=== PATIENT | male | born 2000 | race Two or more races ===

== ENCOUNTER 2025-08-09 22:27 | Emergency (ER) | payer MEDICAID, OTHER ==
[~2025-08-09] VITALS: Ht 175.3 cm; Wt 97.6 kg
[2025-08-10 00:23] VITALS: BP 150/92; PULSE 84; RESP 18; TEMP 97.6; O2SAT 98
[2025-08-10] MEDS ORDERED: CLOB0.055 TOP (00:30)
--- NOTE | 2025-08-10 00:33 | ED.PDOC ---
History of Present Illness(SKN HPI Comments 25-year-old male presents to the ED chief complaint itchy rash to bilateral hands x5 days. Patient reports history of this rash he notes had it about a year ago nose was prescribed a strong steroid cream which helped. Denies fever, chills, weakness or numbness. Denies any other concerns at this time. Chief Complaint: Rash Time Seen by MD: 22:39 History of Present Illness: Nurses Notes, Medications, Allergies Allergies: Coded Allergies: NO KNOWN ALLERGIES (Unverified , 08/09/25) Information Source: Patient Mode of Arrival: Ambulatory Past Medical History PAST MEDICAL HISTORY: Denies Surgical History: Denies all surgeries Family History Family History: Unknown Social History Smoker: Non-Smoker Alcohol: Denies ETOH Use Drugs: Denies Drug Use All Other Systems: Reviewed and Negative (see hpi) Physical Exam General Appearance: No Apparent Distress, Normal HEENT: Pharynx Normal Neck: Full Range of Motion, Non-Tender Respiratory: Lungs Clear, No Respiratory Distress, Normal Breath Sounds Cardiovascular: No Murmur, Normal Peripheral Pulses, Regular Rate/Rhythm Breast Exam: Deferred Gastrointestinal: Non Tender, Soft Genitalia: Deferred Pelvic: Deferred Rectal: Deferred Extremities: Normal capillary refill, Normal range of motion Musculoskeletal : Apperance: Normal Neurologic: Alert, No Motor Deficits, Normal Affect, Normal Mood, No Sensory Deficits Cerebellar Function: Normal Reflexes: NOT DONE Skin: Dry, Normal Color, Rash (Erythemic scaly rash noted on bilateral hands no noted open lesions excoriations or drainage no noted streaking or edema), Warm Lymphatic: No Adenopathy Was a procedure done? Was a procedure done?: No Differential Diagnosis (INTG) Differential Diagnosis: Atopic dermatitis, Candidiasis, Contact Dermatitis, Impetigo, Tinea X-Ray, Labs, Meds, VS Vital Signs Date Time Temp Pulse Resp B/P (MAP) Pulse Ox O2 Delivery O2 Flow Rate FiO2 08/10/25 00:23 97.6 84 18 150/92 (111) 98 97.6 08/10/25 00:23 84 18 98 Room Air 08/09/25 22:46 98.1 84 18 150/92 98 98.1 Time of 1ST Reevaluation: 00:00 Reevaluation 1ST: Unchanged Time of 2ND Reevaluation: 00:30 Reevaluation 2ND: Improved Patient Education/Counseling: Diagnosis, Treatment, Need For Follow Up Family Education/Counseling: No Family Present SEPSIS Sepsis Screen Date sepsis recognized/suspect: Aug 09, 2025 Time Sepsis recognized/suspect: 2248 Recent Procedure: No On Antibiotic Therapy: No Respiratory Rate >20: No Heart Rate >90: No Temp<36 C (96.8 F) or >38.3 C: No SBP <90 or MAP <65 mmHG: No New Acute Mental Status Change: No Is the patient on CPAP, BIPAP,: No Vital Signs Date Time Temp Pulse Resp B/P (MAP) Pulse Ox O2 Delivery O2 Flow Rate FiO2 08/10/25 00:23 97.6 84 18 150/92 (111) 98 97.6 08/10/25 00:23 84 18 98 Room Air 08/09/25 22:46 98.1 84 18 150/92 98 98.1 Departure 1 Departure Time of Disposition: 00:30 Impression: Primary Impression: Rash of both hands Disposition: 01 HOME / SELF CARE / HOMELESS Condition: Stable e-Prescriptions Clobetasol Propionate (Clobetasol Propionate) 0.05 % Cre 1 APPLIC TOP BID for 7 Days, #15 GRAMS Prov: ELMER CONTRERAS 08/10/25 Discharged With: Self Critical Care Note Critical Care Time?: No Stability Stability form required: ELMER Ellis Aug 10, 2025 00:32
== END 2025-08-10 00:39 | disposition home or self-care (01) ==
LOC: ER 22:38
DX: R21 Rash and other nonspecific skin eruption (principal)